=== PATIENT | female | born 1970 | race Caucasian/White ===

== ENCOUNTER → 2017-01-20 | Outpatient (CLI) | payer BC ==
--- NOTE | 2017-01-21 10:15 | MM ---
Reason for exam: screening (asymptomatic). Last mammogram was performed 1 year and 2 months ago. History: Patient had first child at age 32. Family history of breast cancer in sister at age 51. Physical Findings: A clinical breast exam by your physician is recommended on an annual basis and results should be correlated with mammographic findings. MG 3D Screening Mammo W/Cad Bilateral CC and MLO view(s) were taken. Prior study comparison: November 29, 2015, bilateral MG 3d diag mammo w/cad [facility]. November 16, 2014, bilateral MG screening mammo w CAD. October 12, 2013, bilateral digital screening mammo w/CAD. The breast tissue is heterogeneously dense. This may lower the sensitivity of mammography. Asymmetric breast tissue in the right breast, stable. There is no discrete abnormality. ASSESSMENT: Negative, BI-RAD 1 RECOMMENDATION: Routine screening mammogram of both breasts in 1 year.
== END | disposition home or self-care (01) ==
LOC: RADMAMWWP 08:52
PROVIDERS: ATTEND Obstetrics & Gynecology
DX: Z12.31 Encounter for screening mammogram for malignant neoplasm of breast (principal)
CPT/HCPCS: 77063; G0202

== ENCOUNTER → 2017-05-22 | Outpatient (CLI) | payer BC ==
--- NOTE | 2017-05-22 12:36 | XR ---
EXAMINATION TYPE: XR thoracic spine complete DATE OF EXAM: 05/22/2017 CLINICAL HISTORY: Midthoracic pain TECHNIQUE: Frontal, lateral, and swimmer's view of thoracic spine are obtained. COMPARISON: None. FINDINGS: Thoracic spine show dextroconvex scoliotic curvature centered in the mid thoracic spine wit hout evidence of acute fracture or dislocation. Spine is straightened on sagittal images. Vertebral body heights and disc space heights are preserved. Visualized ribs are unremarkable. IMPRESSION: Loss of normal thoracic curvature otherwise fairly unremarkable study.
== END | disposition home or self-care (01) ==
LOC: RADXRYALE 11:26
PROVIDERS: ATTEND Family Medicine
DX: M43.9 Deforming dorsopathy, unspecified (principal); M54.6 Pain in thoracic spine; M62.830 Muscle spasm of back
CPT/HCPCS: 72072

== ENCOUNTER → 2018-01-13 | Outpatient (CLI) | payer BC ==
--- NOTE | 2018-01-13 16:18 | XR ---
EXAMINATION TYPE: XR thoracic spine complete DATE OF EXAM: 01/13/2018 CLINICAL HISTORY: pain TECHNIQUE: Frontal, lateral, and swimmer's view of thoracic spine are obtained. COMPARISON: None. FINDINGS: There is curvature noted convex to the right. Vertebral body heights are preserved. Disc sp aces are well preserved. Visualized ribs are unremarkable. IMPRESSION: No acute fracture or dislocation is seen in the thoracic spine. ICD 10 NO FRACTURE, INIT IAL EVALUATION
--- NOTE | 2018-01-13 16:24 | XR ---
EXAMINATION TYPE: XR lumbar spine 2 or 3V DATE OF EXAM: 01/13/2018 CLINICAL HISTORY: pain TECHNIQUE: Three views of the lumbar spine are submitted. COMPARISON: None. FINDINGS: Curvature is noted convex to the left. There are 5 lumbar type vertebral bodies identified. The lumbar spine shows satisfactory alignment w ithout evidence of acute fracture or dislocation. Vertebral body heights are within normal limits. Disc spaces are within normal limits. The overlying soft tissue appears unremarkable. IMPRESSION: No acute fracture or dislocation is seen in the lumbar spine. ICD 10 NO FRACTURE, INITIAL EVALUATION
== END | disposition home or self-care (01) ==
LOC: RADXRYALE 15:12
PROVIDERS: ATTEND Family Medicine
DX: M54.5 Low back pain (principal); M54.6 Pain in thoracic spine
CPT/HCPCS: 72072; 72100

== ENCOUNTER → 2018-11-19 | Outpatient (CLI) | payer OTHER ==
--- NOTE | 2018-11-20 11:22 | MM ---
Reason for exam: screening (asymptomatic). Last mammogram was performed 1 year and 10 months ago. History: Patient had first child at age 32. Family history of breast cancer in sister at age 51. Physical Findings: A clinical breast exam by your physician is recommended on an annual basis and results should be correlated with mammographic findings. MG Screening Mammo w CAD Bilateral CC and MLO view(s) were taken. Prior study comparison: January 20, 2017, bilateral MG 3d screening mammo w/cad. November 29, 2015, bilateral MG 3d diag mammo w/cad [facility]. The breast tissue is heterogeneously dense. This may lower the sensitivity of mammography. There is no discrete abnormality. ASSESSMENT: Negative, BI-RAD 1 RECOMMENDATION: Routine screening mammogram of both breasts in 1 year.
== END | disposition home or self-care (01) ==
LOC: RADMAMWWP 11:18
PROVIDERS: ATTEND Obstetrics & Gynecology
DX: Z12.31 Encounter for screening mammogram for malignant neoplasm of breast (principal)
CPT/HCPCS: 77067

== ENCOUNTER → 2022-01-09 | Outpatient (CLI) | payer BC ==
--- NOTE | 2022-01-10 10:41 | MM ---
Reason for Exam: Screening (asymptomatic). Last mammogram was performed 3 year(s) and 2 month(s) ago. Patient History: Menarche at age 16. First Full-Term at age 32. Late child-bearing (after 30). Sister had breast cancer, age 51. Last menstrual period: 12/21/2021 Risk Values: Cari 5 year model risk: 1.8%. NCI Lifetime model risk: 15.9%. Prior Study Comparison: 11/29/2015 Bilateral Diagnostic Mammogram, [facility]. 01/20/2017 Bilateral Screening Mammogram, [facility]. 11/19/2018 Bilateral Screening Mammogram, [facility]. Tissue Density: The breast tissue is heterogeneously dense. This may lower the sensitivity of mammography. Findings: Analyzed By CAD. There is no suspicious group of microcalcifications or new suspicious mass in either breast. Overall Assessment: Negative, BI-RAD 1 Management: Screening Mammogram of both breasts in 1 year. A clinical breast exam by your physician is recommended on an annual basis and results should be correlated with mammographic findings. Electronically signed and approved by: Aristeo Aguayo DO
== END | disposition home or self-care (01) ==
LOC: RADMAMWWP 16:44
PROVIDERS: ATTEND Family Medicine
DX: Z12.31 Encounter for screening mammogram for malignant neoplasm of breast (principal); Z80.3 Family history of malignant neoplasm of breast
CPT/HCPCS: 77067

== ENCOUNTER → 2023-03-28 | Outpatient (CLI) | payer BC ==
--- NOTE | 2023-03-31 07:51 | MM ---
Reason for Exam: Screening (asymptomatic). Last mammogram was performed 1 year(s) and 3 month(s) ago. Patient History: Menarche at age 16. First Full-Term at age 32. Late child-bearing (after 30). Currently . Sister had breast cancer, age 51. Last menstrual period: 02/07/2023 Risk Values: Cari 5 year model risk: 1.9%. NCI Lifetime model risk: 15.6%. Prior Study Comparison: 01/20/2017 Bilateral Screening Mammogram, [facility]. 11/19/2018 Bilateral Screening Mammogram, [facility]. 01/09/2022 Bilateral MG screening mammo w CAD, [facility]. Tissue Density: The breast tissue is heterogeneously dense. This may lower the sensitivity of mammography. Findings: Analyzed By CAD. There is no suspicious group of microcalcifications or new suspicious mass in either breast. Overall Assessment: Negative, BI-RAD 1 Management: Screening Mammogram of both breasts in 1 year. A clinical breast exam by your physician is recommended on an annual basis and results should be correlated with mammographic findings. Note on Cari scores and lifetime risk: 1. A Cari score greater than 3% is considered moderate risk. If this is the case, consider specialist referral to assess eligibility for a risk reducing agent. If overall lifetime risk for the development of breast cancer is 20% or higher, the patient may qualify for future screening with alternating mammogram and breast MRI. Electronically signed and approved by: Marcio Daniels D.O.
== END | disposition home or self-care (01) ==
LOC: RADMAMWWP 14:11
PROVIDERS: ATTEND Family Medicine
DX: Z12.31 Encounter for screening mammogram for malignant neoplasm of breast (principal); Z80.3 Family history of malignant neoplasm of breast
CPT/HCPCS: 77063; 77067

== ENCOUNTER → 2024-05-03 | Outpatient (CLI) | payer MEDICAID, OTHER ==
--- NOTE | 2024-05-04 12:01 | CA ---
Transthoracic Echo Report Name: Britni Monte Age: 53 Gender: F : 1970 Exam Date: 05/03/2024 17:09 Exam Location: [place] [facility] Ht (in): 65 Wt (lb): 178 Ordering Physician: Chano Gutierrez DO Attending/Referring Phys: Samara Tejada PAC [employer] Елена Celis RDCS Procedure CPT: Indications: R01.1 Murmur Cardiac Hx: SMOKER Technical Quality: Good Contrast 1: Total Dose (mL): Contrast 2: Total Dose (mL): MEASUREMENTS (Male / Female) Normal Values 2D ECHO LV Diastolic Diameter PLAX 4.6 cm 4.2 - 5.9 / 3.9 - 5.3 cm LV Systolic Diameter PLAX 2.6 cm IVS Diastolic Thickness 0.9 cm 0.6 - 1.0 / 0.6 - 0.9 cm LVPW Diastolic Thickness 0.9 cm 0.6 - 1.0 / 0.6 - 0.9 cm LV Relative Wall Thickness 0.4 RV Internal Dim ED PLAX 2.5 cm LA Systolic Diameter LX 2.5 cm 3.0 - 4.0 / 2.7 - 3.8 cm LV Diastolic Volume MOD BP 115.3 cm??? 67 - 155 / 56 - 104 cm??? LV Systolic Volume MOD BP 41.7 cm??? 22 - 58 / 19 - 49 cm??? LV Ejection Fraction MOD BP 63.8 % >= 55 % LV Cardiac Index MOD BP 2227.5 cm???/min???m??? LV Diastolic Volume MOD 4C 101.6 cm??? LV Systolic Volume MOD 4C 43.4 cm??? LV Ejection Fraction MOD 4C 57.2 % LV Cardiac Index MOD 4C 1760.8 cm???/min???m??? LV Diastolic Length 4C 8.0 cm LV Systolic Length 4C 6.8 cm LV Diastolic Volume MOD 2C 120.4 cm??? LV Systolic Volume MOD 2C 39.4 cm??? LV Ejection Fraction MOD 2C 67.3 % LV Cardiac Index MOD 2C 2453.1 cm???/min???m??? LV Diastolic Length 2C 8.8 cm LV Systolic Length 2C 7.1 cm LA Volume 37.7 cm??? 18 - 58 / 22 - 52 cm??? LA Volume Index 19.3 cm???/m??? 16 - 28 cm???/m??? M-MODE Aortic Root Diameter MM 3.1 cm AV Cusp Separation MM 2.1 cm DOPPLER AV Peak Velocity 150.8 cm/s AV Peak Gradient 9.1 mmHg MV Area PHT 2.3 cm??? Mitral E Point Velocity 69.7 cm/s Mitral A Point Velocity 78.3 cm/s Mitral E to A Ratio 0.9 MV Deceleration Time 325.5 ms TR Peak Velocity 207.5 cm/s TR Peak Gradient 17.2 mmHg Right Ventricular Systolic Press 22.2 mmHg FINDINGS Left Ventricle Left ventricular ejection fraction is estimated at 55-60 %. Left ventricular cavity size normal. Left ventricular wall thickness normal. Normal left ventricular wall motion. Mildly increased left ventricular diastolic volume. Right Ventricle Normal right ventricular size. Right ventricle at upper limits of normal. Right Atrium Normal right atrial size. No right atrial thrombus or mass seen. Left Atrium Normal left atrial size. No left atrial thrombus or mass present. Mitral Valve Structurally normal mitral valve. No mitral stenosis, regurgitation or prolapse. Aortic Valve Trileaflet aortic valve. No aortic valve stenosis or regurgitation. Tricuspid Valve Structurally normal tricuspid valve. Mild tricuspid regurgitation. Pulmonic Valve Structurally normal pulmonic valve. Mild pulmonic regurgitation. Pericardium No pericardial or pleural effusion. Aorta Normal size aortic root and proximal ascending aorta. CONCLUSIONS Normal biventricular systolic function No significant valvular abnormalities Normal pulmonary artery systolic pressure No pericardial effusion Previewed by: Dr. Octaviano Sweet MD (Electronically Signed) Final Date: 04 May 2024 12:00
== END | disposition home or self-care (01) ==
LOC: RADECHMAIN 16:58
PROVIDERS: ATTEND Family Medicine
DX: R01.1 Cardiac murmur, unspecified (principal)
CPT/HCPCS: 93306

== ENCOUNTER → 2024-05-04 | Outpatient (CLI) | payer OTHER ==
--- NOTE | 2024-05-09 16:02 | MM ---
Reason for Exam: Screening (asymptomatic). Last mammogram was performed 1 year(s) and 1 month(s) ago. Patient History: Menarche at age 16. First Full-Term at age 32. Late child-bearing (after 30). Sister had breast cancer, age 51. Risk Values: Cari 5 year model risk: 1.9%. NCI Lifetime model risk: 15.4%. Prior Study Comparison: 11/19/2018 Bilateral Screening Mammogram, [facility]. 01/09/2022 Bilateral MG screening mammo w CAD, [facility]. 03/28/2023 Bilateral MG 3D screening mammo w/cad, [facility]. Tissue Density: There are scattered areas of fibroglandular density. Findings: Analyzed By CAD. The pattern is symmetrical. No significant interval change. No suspicious groups of microcalcifications, spiculated or lobular masses, architectural distortion or other secondary signs of malignancy are mammographically apparent. Overall Assessment: Benign, BI-RAD 2 Management: Screening Mammogram of both breasts in 1 year. A negative mammogram report should not preclude additional follow up of suspicious palpable abnormalities. Patient should continue monthly self breast exam. A clinical breast exam by your physician is recommended on an annual basis and results should be correlated with mammographic findings. Note on Cari scores and lifetime risk: 1. A Cari score greater than 3% is considered moderate risk. If this is the case, consider specialist referral to assess eligibility for a risk reducing agent. 2. If overall lifetime risk for the development of breast cancer is 20% or higher, the patient may qualify for future screening with alternating mammogram and breast MRI. [facility], , 05/09/2024 3:59 PM. Electronically signed and approved by: Charlie Casey D.O. Radiologis
== END | disposition home or self-care (01) ==
LOC: RADMAMWWP 14:30
PROVIDERS: ATTEND Family Medicine
DX: Z12.31 Encounter for screening mammogram for malignant neoplasm of breast (principal); R92.323 Mammographic fibroglandular density, bilateral breasts; Z80.3 Family history of malignant neoplasm of breast
CPT/HCPCS: 77067

== ENCOUNTER → 2024-12-06 | Outpatient (CLI) | payer MEDICAID ==
--- NOTE | 2024-12-06 11:39 | XR ---
EXAMINATION TYPE: XR chest 2V DATE OF EXAM: 12/06/2024 11:08 AM COMPARISON: None. CLINICAL INDICATION: Female, 53 years old with history of [id number] COUGH,BRONCHOSPASM, TECHNIQUE: XR chest 2V view(s) obtained. FINDINGS: The heart size is normal. The pulmonary vasculature is normal. The lungs are clear. IMPRESSION: 1. No acute pulmonary process. [facility], , 12/06/2024 11:36 AM
== END | disposition home or self-care (01) ==
LOC: RADXRYALE 11:01
PROVIDERS: ATTEND Physician Assistant
DX: R05.1 Acute cough (principal); J98.01 Acute bronchospasm
CPT/HCPCS: 71046